=== PATIENT | male | born 1955 | race Caucasian/White ===

== ENCOUNTER → 2016-12-09 | Day surgery (SDC) | payer BC ==
[~2016-12-09] VITALS: Ht 182.9 cm; Wt 74.8 kg
[~2016-12-09] MED LIST: ASPIRIN81 MG ORAL; LANTUS SOL100 UNIT/1 SUBQ; LISINOPRIL10 MG ORAL; LR 1000ml 1,000 ML IVLG SCH; PRANDIN1 MG ORAL; Propofol 10mg/ml 20ml IV ONE
[2016-12-09 08:20] VITALS: BP 135/84
--- NOTE | 2016-12-09 09:04 | Pre-Procedure Note/Attestation ---
Pre-Procedure Note/Attestation Complete Prior to Procedure Planned Procedure: not applicable Procedure Narrative: egd/colonoscopy Indications for Procedure Pre-Operative Diagnosis: screening colon, GERD Attestation I attest that I discussed the nature of the procedure; its benefits; risks and complications; and alternatives (and the risks and benefits of such alternatives ), prior to the procedure, with the patient (or the patient's legal underwriting service representative). I attest that, if there was a reasonable possibility of needing a blood transfusion, the patient (or the patient's legal underwriting service representative) was given the [facility] standardized written summary, pursuant to the Parveen Robert Blood Safety Act ([place] Health and Safety Code # 1645, as amended). I attest that I re-evaluated the patient just prior to the surgery and that there has been no change in the patient's H&P, except as documented below: BUD CASTLE Dec 09, 2016 09:04
--- NOTE | 2016-12-09 09:16 | Short Stay Surgery H&P ---
History of Present Illness History of Present Illness Chief Complaint screening colon, GERD HPI Jack Young is a 61 year old male who was admitted on for Gerd,Colon Screening Patient History Allergies: Coded Allergies: No Known Allergies (Unverified , 12/09/16) PAST MEDICAL HISTORY: (1) DM (diabetes mellitus) (2) HTN (hypertension) Past Surgeries: Social History: Medication History Scheduled Aspirin* (Aspirin*), 81 MG ORAL DAILY, (Reported) Insulin Glargine (Lantus), 16 UNITS SUBQ BEDTIME, (Reported) Lisinopril* (Lisinopril*), 20 MG ORAL DAILY, (Reported) Repaglinide (Prandin), 1 MG ORAL DAILY, (Reported) Review of Systems Cardiovascular: Reports: no symptoms Respiratory: Reports: no symptoms Skeletal: Reports: no symptoms Gastrointestinal: Reports: gastro esophageal reflux disease Genitourinary: Reports: no symptoms Neurologic: Reports: no symptoms Endocrine: Reports: no symptoms Hematologic: Reports: no symptoms Physical Exam Vital Signs Last Vital Signs Date Time Temp Pulse Resp B/P Pulse Ox O2 Delivery O2 Flow Rate FiO2 12/09/16 08:20 98.9 63 18 135/84 95 Room Air Skin: normal HENT: normal Heart: normal Lungs: normal Abdomen: normal Extremities: normal Plan Plan of Care egd/colon Final Diagnosis: Attestation Are the patient's medical conditions optimized for surgery? Attestation Response: yes BUD CASTLE Dec 09, 2016 09:16
--- NOTE | 2016-12-09 09:52 | Endoscopy Procedure Note ---
Endoscopy Procedure Note Indication for Procedure: screening colon, GERD Procedures Performed: EGD, colonoscopy Operative Findings/Diagnosis: hemorhoids, gastritis Specimen: yes Pt Tolerated Procedure Well: Yes Estimated Blood Loss: none Anesthesiologist: see chart Anesthesia: MAC Implant(s) used?: No 50 yrs or older w/o bx or poly: Yes 10yrs. F/U not recommended: Yes If not recommended, why?: Above average risk 10 yrs. F/U needed: Yes 18 years or older w/prev. colo: No BUD CASTLE Dec 09, 2016 09:52
[2016-12-09 09:54] VITALS: BP 114/71
--- NOTE | 2016-12-09 09:54 | Anethesia Preoperative Eval ---
Anesthesia Pre-op PMH/ROS General Date of Evaluation: Dec 09, 2016 Time of Evaluation: 09:23 Anesthesiologist: Phi ASA Score: ASA 2 Mallampati Score Class I : Soft palate, uvula, fauces, pillars visible Class II: Soft palate, uvula, fauces visible Class III: Soft palate, base of uvula visible Class IV: Only hard plate visible Mallampati Classification: Class II Surgeon: Jeff Diagnosis: GERD/screening Surgical Procedure: EGD/Colonoscopy Anesthesia History: none Family History: no anesthesia problems Allergies: Coded Allergies: No Known Allergies (Unverified , 12/09/16) Medications: see eMAR Past Medical History Cardiovascular: Reports: HTN Pulmonary: Denies: COPD, DEACNO, asthma, other Gastrointestinal/Genitourinary: Reports: GERD Neurologic/Psychiatric: Denies: CVA, TIA, dementia, depression/anxiety, other Endocrine: Denies: DM, hypothyroidism, other, steroids HEENT: Denies: UMKUMIUT (L), UMKUMIUT (R), cataract (L), cataract (R), glaucoma, other Hematology/Immune: Denies: DVT, anemia, bleeding disorder, other Musculoskeletal/Integumentary: Denies: DDD, DJD, OA, RA, edema, other PMH Narrative: HTN, DM PSxH Narrative: EGD/Colonoscopy Anesthesia Pre-op Phys. Exam Physician Exam Last Vital Signs Date Time Temp Pulse Resp B/P Pulse Ox O2 Delivery O2 Flow Rate FiO2 12/09/16 08:20 98.9 63 18 135/84 95 Room Air Constitutional: NAD Neurologic: CN 2-12 intact Cardiovascular: RRR Respiratory: CTA Gastrointestinal: S/NT/ND Airway Exam Mallampati Score: Class II MO: full ROM: full Teeth: intact Dentures: no lower, no upper BUBBA JACKSON D.O. Dec 09, 2016 09:54
[2016-12-09 09:59] VITALS: BP 121/73
--- NOTE | 2016-12-09 10:02 | Immediate Post-Op Evaluation ---
Immediate Post-Op Evalulation Immediate Post-Op Evalulation Procedure: EGD with biopsy/colonoscopy Date of Evaluation: Dec 09, 2016 Time of Evaluation: 09:59 IV Fluids: 600ml Blood Products: none Urinary Output: due to void Blood Pressure Systolic: 114 Blood Pressure Diastolic: 79 Pulse Rate: 57 Respiratory Rate: 16 O2 Sat by Pulse Oximetry: 100 Temperature (Fahrenheit): 97.6 Pain Score (1-10): 0 Nausea: No Vomiting: No Complications none Patient Status: awake, reacts Hydration Status: adequate Drug: n/a BUBBA JACKSON D.O. Dec 09, 2016 10:02
[2016-12-09 10:04] VITALS: BP 136/76
--- NOTE | 2016-12-09 10:04 | 48 Hour Post Anesthesia Eval ---
Post Anesthesia Evaluation Procedure: EGD with biopsy/colonoscopy Date of Evaluation: Dec 09, 2016 Time of Evaluation: 10:03 Blood Pressure Systolic: 121 0: 77 Pulse Rate: 66 Respiratory Rate: 16 Temperature (Fahrenheit): 97.6 O2 Sat by Pulse Oximetry: 16 Airway: patent Nausea: No Vomiting: No Pain Intensity: 0 Hydration Status: adequate Cardiopulmonary Status: stable Mental Status/LOC: patient returned to baseline Follow-up Care/Observations: as per GI Post-Anesthesia Complications: none Follow-up care needed: N/A BUBBA JACKSON D.O. Dec 09, 2016 10:04
[2016-12-09 10:19] VITALS: BP 121/82
--- NOTE | 2016-12-09 20:18 | Procedure Note ---
SURGEON: Ricky Aguilar M.D. PROCEDURE: Upper endoscopy with biopsy. FINDINGS: INSTRUMENT USED: Olympus adult flexible endoscope. INDICATIONS FOR PROCEDURE: The procedure, risks, benefits, and possible consequences, including hemorrhage, aspiration, perforation and infection, and alternative treatments, were explained to the patient/legal guardian by Dr. Ricky Aguilar and the patient/legal guardian understood and accepted these risks. INCOMPLETE DICTATION Ricky Aguilar M.D. DR: MCKENZIE JOB#: [id number] CC:
--- NOTE | 2016-12-09 20:28 | Procedure Note ---
DATE OF PROCEDURE: 12/09/2016 SURGEON: Ricky Aguilar M.D. PROCEDURE: Upper endoscopy with biopsy and colonoscopy. ANESTHESIA: Per anesthesiologist. Please see anesthesia sheet. INSTRUMENT: Olympus adult flexible upper endoscope and colonoscope. INDICATION: 1. Screening colonoscopy evaluation. 2. Chronic gastroesophageal reflux disease. REASON FOR PROCEDURE: The procedure, risks, benefits, and possible consequences, including hemorrhage, aspiration, perforation and infection, and alternative treatments, were explained to the patient/legal guardian by Dr. Ricky Aguilar and the patient/legal guardian understood and accepted these risks. DESCRIPTION OF PROCEDURE: After informed consent was obtained and the patient was adequately sedated, Olympus upper endoscope was advanced from mouth into the second portion of duodenum and retroflexion was performed in the stomach. The patient had diffuse gastritis. Random biopsy from antrum was obtained to rule out H. pylori infection. The patient also had few random small polyps in the body of the stomach most likely fundic gland polyps, so these were not biopsied. GE junction was found to be about 30 cm from the incisors. There was no evidence of any esophagitis or esophageal ulcerations. No esophageal mass. At this time, the upper endoscope was slowly retrieved and upper endoscopy was terminated and the patient was turned over for colonoscopy. First, a rectal exam was performed, which shows positive for internal hemorrhoids. Then, the scope was advanced from the rectum into the cecum documented by appendiceal orifice, ileocecal valve, and right upper quadrant palpation. Quality of prep was very excellent. The patient had normal colonoscopy examination. No obvious mass, polyp, diverticula, or any other pathology was seen. Retroflexion of rectum showed evidence of internal hemorrhoids. SUMMARY OF FINDINGS: 1. Gastritis, status post biopsy. 2. Few polyps in the body of the stomach, most probably fundic gland polyps. 3. Internal hemorrhoids. RECOMMENDATIONS: Followup biopsies and treat accordingly. Ricky Aguilar M.D. DR: MCKENZIE JOB#: [id number] CC:
== END | disposition home or self-care (01) ==
LOC: GAS 07:37
DX: Z12.11 Encounter for screening for malignant neoplasm of colon (principal); K64.8 Other hemorrhoids; K21.9 Gastro-esophageal reflux disease without esophagitis; K29.50 Unspecified chronic gastritis without bleeding; K31.7 Polyp of stomach and duodenum; E10.9 Type 1 diabetes mellitus without complications; Z79.4 Long term (current) use of insulin; I10 Essential (primary) hypertension; E78.2 Mixed hyperlipidemia; Z79.899 Other long term (current) drug therapy
CPT/HCPCS: 43239; 45378; 82962; J2704; 94003; 94150